=== PATIENT | female | born 1980 ===

== ENCOUNTER 2017-04-18 19:31 | Emergency (ER) | payer MEDICAID ==
[2017-04-18 19:46] VITALS: BMI 40.2
[2017-04-18 19:47] VITALS: TEMP 98.3; O2SAT 100
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
[2017-04-18 20:58] VITALS: BP 158/89; PULSE 89; RESP 17
--- NOTE | 2017-04-19 08:54 | RAD ---
PROCEDURE: Radiographs of the Left Shoulder HISTORY: Injury COMPARISON: No prior. FINDINGS: BONES: Bone alignment and mineralization are normal. There is no acute displaced fracture or bone destruction. JOINTS: Normal. Glenohumeral and acromioclavicular joints preserved. SOFT TISSUES: Normal. OTHER FINDINGS: None. IMPRESSION: No acute fracture or dislocation.
== END 2017-04-18 21:04 | disposition home or self-care (01) ==
LOC: ED 19:31 → MERGE 19:31 → ED 21:04
DX: S46.912A Strain of unspecified muscle, fascia and tendon at shoulder and upper arm level, left arm, initial encounter (principal); W22.01XA Walked into wall, initial encounter; Y93.89 Activity, other specified; Y92.89 Other specified places as the place of occurrence of the external cause